=== PATIENT | male | born 1960 | race African-American/Black ===

== ENCOUNTER 2016-09-30 12:56 | Emergency (ER) | payer OTHER ==
[~2016-09-30] VITALS: Ht 180.3 cm; Wt 72.7 kg
[2016-09-30 13:09] VITALS: BP 105/81
[2016-09-30] MEDS ORDERED: AUD NEB (13:59)
[2016-09-30] MEDS ORDERED: FERR-89 PO (13:59)
== END 2016-09-30 15:24 | disposition left against medical advice (07) ==
LOC: EMS 12:57
DX: R11.2 Nausea with vomiting, unspecified (principal); R53.1 Weakness; J45.909 Unspecified asthma, uncomplicated; I10 Essential (primary) hypertension; I48.91 Unspecified atrial fibrillation; Z53.21 Procedure and treatment not carried out due to patient leaving prior to being seen by health care provider